=== PATIENT | male | born 1955 | race Caucasian/White ===

== ENCOUNTER → 2024-03-01 | Day surgery (SDC) | payer MEDICARE, BC ==
[~2024-03-01] VITALS: Ht 167.6 cm; Wt 75.7 kg
[2024-03-01] VITALS (7 sets, daily range): BP systolic 127–149; BP diastolic 74–90; PULSE 58–65; RESP 10–21; TEMP 98.3; O2SAT 96–97
[~2024-03-01] MED LIST: ASPI-611 PO; HYDROmorphone 1 mg/ml syringe ONE; LIDOcaine 1% 30ml preserv. free vial ONE; LOSA25TA41 PO; RIZA10TA28 PO; ROSU10TA28 PO; TADA5TAB13 PO; fentaNYL/PF 50MCG/1 ML 2ML syringe ONE; heparin 1,000unit/ml 10ml vial 10 ML ONE; iohexol 350 MG/ML 50ML vial IV ONE; iohexol 350MG/ML 100ml bottle IV ONE; midazolam 1 mg/ML 2ml injection ONE; ondansetron/PF 4mg/2ml inj IV PRN
[2024-03-01 07:58] LABS: BASOPHILS # (AUTO) 0.1 X10'3 (0-0.2); EOSINOPHILS # (AUTO) 0.3 X10'3 (0-0.9); HEMOGLOBIN 14.4 g/dl (14.0-17.9)
[2024-03-01 08:00] LABS: BASOPHILS % (AUTO) 1.4 % (0-1); EOSINOPHILS % (AUTO) 4.1 % (0-6); HEMATOCRIT 42.4 % (42.0-52.0); LYMPHOCYTES # (AUTO) 2.2 X10'3 (1.1-4.8); LYMPHOCYTES % (AUTO) 32.1 % (21-51); MEAN CORPUSCULAR HEMOGLOBIN 33.8 PG (27.0-31.0); MEAN CORPUSCULAR HGB CONC 34.1 g/dL (33.0-36.5); MEAN CORPUSCULAR VOLUME 99.3 FL (78-98); MEAN PLATELET VOLUME 7.9 FL (7.4-10.4); MONOCYTES % (AUTO) 14.6 % (2-12); NEUTROPHILS # (AUTO) 3.3 X10'3 (1.8-7.7); NEUTROPHILS % (AUTO) 47.8 % (42-75); PLATELET COUNT 269 X10'3 (140-440); RED BLOOD COUNT 4.27 X10'6 (4.70-6.10); RED CELL DISTRIBUTION WIDTH 13.8 % (11.5-14.5)
[2024-03-01] MEDS: sodium bicarbonate 1meq/ml syr 150 ML in dextrose 5%-water 1,000 ML IV SCH (08:19)
[2024-03-01] MEDS: diphenhydrAMINE 25mg capsule PO PRN (08:19)
[2024-03-01 08:22] LABS: PROTHROMBIN TIME 10.4 SECONDS (9.0-12.0)
[2024-03-01] MEDS: normal saline 1,000 ML IV SCH (08:24)
[2024-03-01 08:26] LABS: ALBUMIN 3.9 G/DL (3.4-5.0); ANION GAP 11 (8-16); BLOOD UREA NITROGEN 16 MG/DL (7-18); BUN/CREATININE RATIO 15.5 (10.0-20.0); CALCIUM 9.2 MG/DL (8.5-10.1); CHLORIDE 103 MMOL/L (99-107); CREATININE 1.03 MG/DL (0.60-1.10); GLUCOSE 100 MG/DL (70-104); MAGNESIUM 1.9 MG/DL (1.5-2.4); POTASSIUM 4.1 MMOL/L (3.5-5.1); SODIUM 140 MMOL/L (135-145); TOTAL CARBON DIOXIDE 25.9 MMOL/L (24-32); eCRCL 62 ML/MIN; eGFR 72 ML/MIN
== END | disposition home or self-care (01) ==
LOC: SSTAY O 06:59
PROVIDERS: ATTEND Internal Medicine Cardiovascular Disease
DX: I35.0 Nonrheumatic aortic (valve) stenosis (principal); I45.10 Unspecified right bundle-branch block; I25.10 Atherosclerotic heart disease of native coronary artery without angina pectoris; I10 Essential (primary) hypertension; E78.5 Hyperlipidemia, unspecified; Z79.82 Long term (current) use of aspirin; Z79.899 Other long term (current) drug therapy; Z90.81 Acquired absence of spleen; Z95.2 Presence of prosthetic heart valve; Z98.890 Other specified postprocedural states
CPT/HCPCS: 36415; 80048; 83735; 85025; 85610; 93005; 93456; 99152; 99153; J1644; J2250; J3010; J3490; J7030; J7070; Q0163; Q9967; A6258; C1725; C1751; C1760; C1769; C1894; J1170

== ENCOUNTER 2024-03-08 07:20 | Day surgery (SDC) | payer MEDICARE, BC ==
[~2024-03-08] VITALS: Ht 167.6 cm; Wt 74.5 kg
[2024-03-08] VITALS (14 sets, daily range): BP systolic 125–166; BP diastolic 54–108; PULSE 61–88; RESP 12–18; TEMP 98; O2SAT 93–99
[~2024-03-08 07:20] MED LIST changes: -HYDROmorphone 1 mg/ml syringe ONE; -LIDOcaine 1% 30ml preserv. free vial ONE; -fentaNYL/PF 50MCG/1 ML 2ML syringe ONE; -heparin 1,000unit/ml 10ml vial 10 ML ONE; -iohexol 350 MG/ML 50ML vial IV ONE; -iohexol 350MG/ML 100ml bottle IV ONE; -midazolam 1 mg/ML 2ml injection ONE; -ondansetron/PF 4mg/2ml inj IV PRN
[2024-03-08 08:28] LABS: BASOPHILS # (AUTO) 0.1 X10'3 (0-0.2); EOSINOPHILS # (AUTO) 0.2 X10'3 (0-0.9); MONOCYTES # (AUTO) 0.7 X10'3 (0-0.9); WHITE BLOOD COUNT 5.6 X10'3 (4.5-11.0)
[2024-03-08 08:30] LABS: BASOPHILS % (AUTO) 1.3 % (0-1); HEMATOCRIT 40.7 % (42.0-52.0); HEMOGLOBIN 13.9 g/dl (14.0-17.9); LYMPHOCYTES # (AUTO) 1.9 X10'3 (1.1-4.8); LYMPHOCYTES % (AUTO) 33.6 % (21-51); MEAN CORPUSCULAR HEMOGLOBIN 33.9 PG (27.0-31.0); MEAN CORPUSCULAR HGB CONC 34.1 g/dL (33.0-36.5); MEAN CORPUSCULAR VOLUME 99.6 FL (78-98); MEAN PLATELET VOLUME 7.6 FL (7.4-10.4); MONOCYTES % (AUTO) 12.2 % (2-12); NEUTROPHILS # (AUTO) 2.8 X10'3 (1.8-7.7); NEUTROPHILS % (AUTO) 49.9 % (42-75); PLATELET COUNT 271 X10'3 (140-440); RED BLOOD COUNT 4.08 X10'6 (4.70-6.10); RED CELL DISTRIBUTION WIDTH 13.7 % (11.5-14.5)
[2024-03-08 08:49] LABS: PROTHROMBIN TIME 10.7 SECONDS (9.0-12.0)
[2024-03-08] MEDS: glycopyrrolate 0.2mg/ml inj IV ONE (09:19)
[2024-03-08] MEDS: fentaNYL/PF 50MCG/1 ML 2ML syringe IV ONE (12:21)
[2024-03-08] MEDS: MIDAZolam 1mg/ml 10ml vial IV ONE (12:21)
== END 2024-03-08 13:10 | disposition home or self-care (01) ==
LOC: SSTAY O 07:20
PROVIDERS: ATTEND Internal Medicine Cardiovascular Disease
DX: I35.0 Nonrheumatic aortic (valve) stenosis (principal); I10 Essential (primary) hypertension; E78.5 Hyperlipidemia, unspecified; G40.A09 Absence epileptic syndrome, not intractable, without status epilepticus; Z95.2 Presence of prosthetic heart valve; Z79.82 Long term (current) use of aspirin; Z79.899 Other long term (current) drug therapy; Z90.81 Acquired absence of spleen
CPT/HCPCS: 85025; 85610; 93312; J2250; J3010; J3490; J7030

== ENCOUNTER 2025-04-14 08:37 | Outpatient (CLI) | payer MEDICARE, BC ==
[~2025-04-14 08:37] MED LIST changes: -ROSU10TA28 PO; +ROSU10TA72 PO; -TADA5TAB13 PO; +TADA5TAB14 PO
[2025-04-14 09:31] LABS: BASOPHILS # (AUTO) 0.1 X10'3 (0-0.2); BASOPHILS % (AUTO) 0.9 % (0-1); EOSINOPHILS # (AUTO) 0.2 X10'3 (0-0.9); EOSINOPHILS % (AUTO) 3.3 % (0-6); HEMATOCRIT 41.2 % (42.0-52.0); HEMOGLOBIN 13.8 g/dl (14.0-17.9); LYMPHOCYTES # (AUTO) 2.2 X10'3 (1.1-4.8); LYMPHOCYTES % (AUTO) 32.7 % (21-51); MEAN CORPUSCULAR HEMOGLOBIN 33.3 PG (27.0-31.0); MEAN CORPUSCULAR HGB CONC 33.5 g/dL (33.0-36.5); MEAN CORPUSCULAR VOLUME 99.7 FL (78-98); MEAN PLATELET VOLUME 8.2 FL (7.4-10.4); MONOCYTES # (AUTO) 0.9 X10'3 (0-0.9); MONOCYTES % (AUTO) 13.3 % (2-12); NEUTROPHILS # (AUTO) 3.3 X10'3 (1.8-7.7); NEUTROPHILS % (AUTO) 49.8 % (42-75); PLATELET COUNT 254 X10'3 (140-440); RED BLOOD COUNT 4.13 X10'6 (4.70-6.10); RED CELL DISTRIBUTION WIDTH 13.5 % (11.5-14.5); WHITE BLOOD COUNT 6.7 X10'3 (4.5-11.0)
[2025-04-14 09:43] LABS: APTT 27 SECONDS (22-32); PROTHROMBIN TIME 10.3 SECONDS (9.0-12.0)
[2025-04-14 09:50] LABS: ALANINE AMINOTRANSFERASE 19 U/L (12-78); ALBUMIN 3.7 G/DL (3.4-5.0); ALKALINE PHOSPHATASE 58 IU/L (46-116); ANION GAP 9 (8-16); ASPARTATE AMINO TRANSFERASE 30 U/L (10-37); BILIRUBIN,TOTAL 0.5 MG/DL (0.1-1.0); BLOOD UREA NITROGEN 14 MG/DL (7-18); BUN/CREATININE RATIO 14.3 (10.0-20.0); CALCIUM 8.7 MG/DL (8.5-10.1); CHLORIDE 105 MMOL/L (99-107); CREATININE 0.98 MG/DL (0.60-1.10); GLUCOSE 106 MG/DL (70-104); POTASSIUM 4.1 MMOL/L (3.5-5.1); PRO BRAIN NATRIURETIC PEPTIDE 101 PG/ML (0-125); SODIUM 140 MMOL/L (135-145); TOTAL CARBON DIOXIDE 26.1 MMOL/L (24-32); TOTAL PROTEIN 7.4 G/DL (6.4-8.2); eGFR 76 ML/MIN
[2025-04-14] MEDS ORDERED: IODIXANOL 320 MG/ML INFUS..BTL 100ML IV ONE (10:53)
--- NOTE | 2025-04-14 11:21 | RADIOLOGY REPORT ---
DI CHEST,TWO VIEWS CLINICAL HISTORY: SOB TAVR COMPARISON: None TECHNIQUE: Frontal and lateral view of the chest was obtained FINDINGS: Lines and Tubes: None Lungs: No focal consolidation. Pleura: No effusion. No pneumothorax. Cardiomediastinal contours: Unremarkable Bones: No acute osseous abnormality. IMPRESSION: No acute cardiopulmonary disease. MEDIAN STERNOTOMY.
--- NOTE | 2025-04-14 11:22 | VASCULAR REPORT ---
Carotid Duplex Date: 04/14/2025 09:05 AM Clinical History: Preop TAVR Comparison: None Technique: Duplex Doppler evaluation of the extracranial carotid and vertebral arteries including col or Doppler and spectral/pulsed waveform analysis was performed. Findings: RIGHT SIDE: The peak systolic velocities are 89 cm/s in the distal CCA and 105 cm/s in the proximal ICA.The ICA/C CA ratio is 1.4. The external carotid artery is patent with peak systolic velocity of 92 cm/s proximally. There is appropriate antegrade flow in the right vertebral artery. LEFT SIDE: The peak systolic velocities are 97 cm/s in the distal CCA and 91cm/s in the proximal ICA. The ICA/ CCA ratio is 1.2. The external carotid artery is patent with peak systolic velocity of 100 cm/s proximally. There is appropriate antegrade flow in the left vertebral artery. Right subclavian artery: 152 cm/sec. Left subclavian artery: 144 cm/sec. IMPRESSION: No hemodynamically significant stenosis noted in the right carotid system. No hemodynamically significant stenosis noted in the left carotid system. Reference: Radiology 2003; 229:[id number]
--- NOTE | 2025-04-15 15:55 | RADIOLOGY REPORT ---
CT CTA TAVR INDICATION: AV STENOSIS,SOB,CAROTID STENOSIS TECHNIQUE: Gated CT angiography of the heart was performed along with CT angiography of the lower nec k, chest, abdomen, and pelvis. MIP, MPR, and 3-D images were obtained. Measurements were performed on the centrose workstation. All CT scans at this facility use dose modulation, iterative reconstruction , and/or weight based dosing when appropriate to reduce radiation dose to as low as reasonably achiev able. # of previous computed tomography exams in the last 12 months is 0. # of previous nuclear medicine my ocardial perfusion studies in the last 12 months is 0. COMPARISON: None FINDINGS: ANNULAR PLANE DISTANCE: 29.2 x 23.7 mm AREA: 5.28 cm2 AVERAGE DIAMETER: 26.45 mm PERIMETER: 82.8 mm LEFT CORONARY ARTERY HEIGHT ABOVE ANNULAR PLANE: 8.25 mm RIGHT CORONARY ARTERY HEIGHT ABOVE ANNULAR PLANE: 12 mm LEFT CORONARY SINUS DIAMETER: 33.8 mm RIGHT CORONARY SINUS DIAMETER: 33.8 mm NONCORONARY CORONARY SINUS DIAMETER: 35.6 mm SINOTUBULAR JUNCTION DIAMETER: 29.5 mm RIGHT COMMON ILIAC ARTERY MINIMAL DIMENSIONS: 11.2 mm RIGHT EXTERNAL ILIAC ARTERY MINIMAL DIMENSIONS: 9.17 mm RIGHT COMMON FEMORAL ARTERY MINIMAL DIMENSIONS: 8.54 mm LEFT COMMON ILIAC ARTERY MINIMAL DIMENSIONS: 10 mm LEFT EXTERNAL ILIAC ARTERY MINIMAL DIMENSIONS: 8.92 mm LEFT COMMON FEMORAL ARTERY MINIMAL DIMENSIONS: 8.68 mm [LOWER NECK]: Unremarkable [LYMPH NODES/MEDIASTINUM]: No abnormal lymph nodes by CT size criteria [CARDIOVASCULAR]: Mild cardiomegaly. No pericardial effusion. Prominence of the main pulmonary h[place] ry, which may indicate pulmonary hypertension. Prior aortic valvular replacement. No significant jaquan nary artery calcifications. [LUNG PARENCHYMA/PLEURAL SPACE]: No consolidation, suspicious focal airspace opacity, or suspicious n odules. No pleural effusion or pneumothorax. [CHEST WALL]: Unremarkable. [LIVER]: Normal hepatic size without suspicious focal lesion. [SPLEEN]: Splenectomy. Small splenules in the left upper quadrant. [PANCREAS]: Unremarkable. [GALLBLADDER AND BILIARY TREE]: No cholelithiasis. No biliary dilatation. [ADRENAL GLANDS]: Unremarkable [KIDNEYS]: No hydronephrosis. No nephroureterolithiasis. No suspicious focal lesion. [BLADDER]: Circumferential bladder wall thickening, which may be seen in the setting of acute versus chronic cystitis and correlate with urinalysis. [PELVIC ORGANS]: Mild prostatomegaly [BOWEL/MESENTERY]: Stomach is normal. No CT evidence of bowel obstruction. Sigmoid diverticulosis. No definitive CT evidence of acute diverticulitis. Mild stool burden. [ASCITES]: Absent [LYMPHADENOPATHY]: No pathologically enlarged lymph nodes by CT size criteria [VASCULATURE]: Severe celiac artery narrowing which may be related to median arcuate ligament syndrom e/celiac artery compression from the juan of the diaphragm (series 602, image 71). [ABDOMINAL WALL]: Unremarkable. [MUSCULOSKELETAL]: No acute fracture or aggressive focal osseous lesion. Multifocal degenerative paige ge of the visualized spine. Likely chronic superior endplate compression deformity of L3 with estima gerard 10-20 percent superior endplate height loss. IMPRESSION: Calculations for TAVR evaluation as above. Circumferential bladder wall thickening, which may be seen in the setting of acute versus chronic cys titis and correlate with urinalysis. Severe celiac artery narrowing which may be related to median arcuate ligament syndrome/celiac artery compression from the juan of the diaphragm.
--- NOTE | 2025-04-15 17:55 | CARDIOLOGY REPORT ---
APPROVED REPORT EXAM: Limited 2D, Doppler, and color-flow Echocardiogram. Patient Location: OUT-PATIENT Blood Pressure: 120/60 mmHg Heart Rate: 68 bpm Rhythm: SINUS Indications REASSESS 23MM TRIFECTA AVR FROM 2013 FOR STENOSIS AND INSUFFICIENCY Job Boss: Jose GROSS DO Previous echo: 03/18/25 [facility] EF: 60-65%; mLAE; sevAS KRAIG: 1.20; PKV: 4.1; GRAD: 67/40 03/08/25 [facility] SS EF: 70%; nlLV; mCLVH; nlRV; nlLAA; seated AVR, thick leaflets-but opens well. NoAI/P VL LEFT VENTRICLE Normal LV size with mild concentric hypertrophy. Overall systolic function is normal. LVEF is 70%. RIGHT VENTRICLE RV is normal size and function. ATRIA The left atrium size is normal. Right atrium is moderately dilated. AORTIC VALVE 23 mm Trifecta (Liu) bioprosthetic AVR appears moderately thickened, but maintains acceptable open ing. ACS measures 1.8cm. There is significant abnormal function detected via increased transvalvular and ascending aorta turbulance, as well as mild eccentric insufficiency. Peak / mean gradients of 92 / 47 mmHG. Peak velocity is measured at 4.81 m/sec. MITRAL VALVE Mild MV annular calcification and leaflet thickening without stenosis. Trace regurgitation. TRICUSPID VALVE TV appears structurally normal with trace regurgitation. PULMONIC VALVE Normal PV without stenosis, physiologic insufficiency. GREAT VESSELS Aortic root is normal in size. Normal appearing arch with increased flow velocities. Ascending aorta is normal in size. PERICARDIUM Normal pericardium. No effusion. Conclusion Normal LV size with mild concentric hypertrophy. Overall systolic function is normal. LVEF is 70%. RV is normal size and function. The left atrium size is normal. Right atrium is moderately dilated. 23 mm Trifecta (Liu) bioprosthetic AVR appears moderately thickened, but maintains acceptable open ing. ACS measures 1.8cm. There is significant abnormal function detected via increased transvalvula r and ascending aorta turbulance, as well as mild eccentric insufficiency. Peak / mean gradients of 92 / 47 mmHG. Peak velocity is measured at 4.81 m/sec. Mild MV annular calcification and leaflet thickening without stenosis. Trace regurgitation. TV appears structurally normal with trace regurgitation. Aortic root is normal in size. Normal appearing arch with increased flow velocities. Ascending aorta is normal in size. Normal pericardium. No effusion.
== END 2025-04-14 23:59 | disposition home or self-care (01) ==
LOC: RAD 08:37
PROVIDERS: ATTEND Internal Medicine Cardiovascular Disease
DX: I08.8 Other rheumatic multiple valve diseases (principal); I35.0 Nonrheumatic aortic (valve) stenosis; R06.02 Shortness of breath; Z13.6 Encounter for screening for cardiovascular disorders; I65.29 Occlusion and stenosis of unspecified carotid artery
CPT/HCPCS: 36415; 71046; 71275; 74174; 75572; 80053; 83880; 85025; 85610; 85730; 93308; 93880; Q9967

== ENCOUNTER 2025-06-06 12:00 | Inpatient (IN) | payer MEDICARE, BC ==
[~2025-06-06] VITALS: Ht 167.6 cm; Wt 74.6 kg
--- NOTE | 2025-06-06 12:15 | ELECTROCARDIOGRAPH REPORT ---
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 Zachary Long Measurements Intervals [place] Rate: 67 P: 8 IL: 188 QRS: 36 QRSD: 93 T: 29 QT: 405 QTc: 428 Interpretive Statements Sinus rhythm Probable left atrial enlargement Anterior infarct, old Electronically Signed On 06-06-2025 18:16:[address] Zachary Long Please click the below link to view image of tracing.
--- NOTE | 2025-06-06 12:32 | Physician Documentation ---
History of Present Illness ~ Chief Complaint: See Chief Complaint Stated Complaint: CONGESTION [id number] Time Seen by MD: 12:28 OK to notify your PCP?: Yes Source: patient Mode of Arrival: EMS Exam Limitations: no limitations HPI 70 year old male with chief complaint SOB X 2weeks getting progressively worse. States around midnight to 2:00 a.m. he asked her to get out of bed and sleep in a recliner due to his shortness of breath. He went to see his primary care provider who prescribed him an inhaler which has not been helping symptoms have been getting progressively worse over the past several days. 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 Miles gait he is also followed by Dr. fagan and has a appointment to have his aortic valve placed 07/24. No LE edema. No heartburn, cough, SOB, abdominal pain, dizziness. Medication Reconciliation Allergies: Coded Allergies: No Known Allergies (Unverified , 03/01/24) Scheduled Aspirin (Aspir 81), 1 TAB PO DAILY, (Reported) Losartan Potassium (Losartan Potassium), 1 TAB PO DAILY, (Reported) Rosuvastatin Calcium (Rosuvastatin Calcium), 1 TAB PO DAILY, (Reported) Tadalafil (Tadalafil), 1 TAB PO DAILY, (Reported) Scheduled PRN Rizatriptan Benzoate (Rizatriptan), 1 TAB PO DAILY PRN for migraine headaches, (Reported) Past Medical History Past Medical History: Denies: *CARDIOVASCULAR* Review of Systems All Other Systems at this time: Reviewed and Negative Physical Exam Vital Signs: Temperature: 98.6, Source: Oral, Heart Rate: 72, Respiratory Rate: 16, BP: 134/60, Pulse Oximetry: 98, Weight: 74.600 Oxygen Flow Rate: 0 Physical Exam GENERAL: Alert, no acute distress. HEENT: NCAT, EOMI, PERRL, normal oropharynx, moist oral mucosa. NECK: Supple, trachea midline. CARDIAC: Regular rate and rhythm, SYSTOLIC MURMUR GRADE 4-5/6, no Rubs, or gallops. Equal distal pulses. No lower extremity edema, cap refill less than 2 seconds. RESPIRATORY: Decreased BS, no respiratory distress. GASTROINTESTINAL: Non distended, soft, nontender, No guarding or rebound. MUSCULOSKELETAL: Normal range of motion, nontender, no swelling. NEUROLOGICAL: Awake, alert, and oriented x 3. SKIN: Warm/dry, no pallor, no rash. PSYCH: Alert and appropriate. Affect congruent with mood. Speech is clear. Good eye contact. Progress Results/Orders Results/Orders Orders - GRETTA VOSS Hs Troponin I W Calculations (06/06/25 16:50) Hs Troponin I W Calculations (06/06/25 17:50) Page Hospitalist (06/06/25 16:06) Cta Chest Pe (06/06/25 16:07) Completed Orders - GRETTA VOSS Cbc/Diff (06/06/25 14:50) Pt Inr (06/06/25 14:50) PTT (06/06/25 14:50) PBNP (06/06/25 14:50) Hs Troponin I W Calculations (06/06/25 14:50) Bmp Er (06/06/25 14:51) Vital Signs 06/06/25 06/06/25 06/06/25 12:07 15:13 15:24 Temp 98.6 Pulse 72 68 Resp 16 18 19 B/P (MAP) 134/60 112/71 (85) Pulse Ox 98 96 O2 Flow Rate 0 0 Laboratory Tests Test 06/06/25 15:05 White Blood Count 6.9 Red Blood Count 3.93 L Hemoglobin 13.4 L Hematocrit 39.3 L Mean Corpuscular Volume 100.0 H Mean Corpuscular Hemoglobin 34.1 H Mean Corpuscular Hemoglobin Concent 34.1 Red Cell Distribution Width 13.4 Platelet Count 231 Mean Platelet Volume 9.3 Neutrophils (%) (Auto) 52.1 Lymphocytes (%) (Auto) 29.5 Monocytes (%) (Auto) 12.5 H Eosinophils (%) (Auto) 4.7 Basophils (%) (Auto) 1.2 H Neutrophils # (Auto) 3.6 Lymphocytes # (Auto) 2.0 Monocytes # (Auto) 0.9 Eosinophils # (Auto) 0.3 Basophils # (Auto) 0.1 CBC Comment Prothrombin Time 10.8 INR International Normalized Ratio 1.1 Activated Partial Thromboplast Time 29 Coagulation Comments Sodium Level 138 Potassium Level 4.5 Chloride Level 105 Carbon Dioxide Level 26.2 Anion Gap 7 L Blood Urea Nitrogen 11 Creatinine 0.97 Estimated GFR/1.73 m2 77 BUN/Creatinine Ratio 11.3 Glucose Level 103 Calcium Level 9.0 Troponin I High Sensitivity 25 Pro-B-Type Natriuretic Peptide 1892 H Albumin 3.7 Chemistry Comments Medical Decision Making Differential Dx:Considerations: Include: angina, aortic dissection, chest wall pain, cholelithiasis, CHF, costochondritis, esophageal reflux/spasm, gastritis, herpes zoster, myocardial infarction, pericarditis, pleuritis, pancreatitis, pneumonia, pneumothorax, pulmonary embolus, other Departure Time of Disposition: 16:22 Admitted to Inpatient Unit: to hospitalist Impression: Primary Impression: CHF (congestive heart failure) Qualified Codes: I50.9 - Heart failure, unspecified Additional Impression: Aortic stenosis Qualified Codes: I35.0 - Nonrheumatic aortic (valve) stenosis Condition: Fair Referrals: NO PRIMARY CARE PROVIDER (PCP) Education Educated: Patient Educated regarding: diagnosis, treatment, need for follow up Signature Scribe Signature: x Attestation: GRETTA Parra Jun 06, 2025 12:31
--- NOTE | 2025-06-06 13:01 | RADIOLOGY REPORT ---
CHEST RADIOGRAPH Indication: CP Technique: Single frontal view of the chest was obtained COMPARISON: None FINDINGS: Lines and Tubes: Median sternotomy Lungs: Clear Pleura: Small bilateral pleural effusions, [id number]-left. No pneumothorax. Cardiomediastinal contours: Unremarkable Bones: Unremarkable IMPRESSION: Small bilateral pleural effusions, [id number]-left.
[2025-06-06 15:22] LABS: MEAN PLATELET VOLUME 9.3 FL (7.4-10.4); RED CELL DISTRIBUTION WIDTH 13.4 % (11.5-14.5)
[2025-06-06 15:31] LABS: APTT 29 SECONDS (22-32); INR 1.1 INR
[2025-06-06 15:40] LABS: CREATININE 0.97 MG/DL (0.60-1.10); PRO BRAIN NATRIURETIC PEPTIDE 1892 PG/ML (0-125); TOTAL CARBON DIOXIDE 26.2 MMOL/L (24-32); eCRCL 64 ML/MIN; eGFR 77 ML/MIN
[2025-06-06] MEDS ORDERED: magnesium sulf-water 4G/100mL 100 ML IV PRN (16:45)
[2025-06-06] MEDS ORDERED: magnesium hydroxide 30ml (MOM) UD suspension PO PRN (16:45)
[2025-06-06] MEDS ORDERED: magnesium sulf-water 2g/50mL 50 ML IV PRN (16:45)
[2025-06-06] MEDS ORDERED: potassium Cl 40MEQ/1/2NS 520ml 520 ML IV PRN (16:45)
[2025-06-06] MEDS ORDERED: potassium Cl 20 mEq SR tablet PO PRN ×2 (16:45)
[2025-06-06] MEDS ORDERED: magnesium Cl slow-release 64mg tablet PO PRN (16:45)
[2025-06-06] MEDS ORDERED: ondansetron/PF 4mg/2ml inj IV PRN (16:45)
[2025-06-06 17:00] LABS: LEUKOCYTE ESTERASE ,URINE NEGATIVE (Neg); NITRITES, URINE NEGATIVE (Neg); OCCULT BLOOD,URINE NEGATIVE (Neg)
[2025-06-06 17:03] LABS: UA COLLECTION TYPE CLN CATCH MIDSTREAM
--- NOTE | 2025-06-06 17:22 | HISTORY AND PHYSICAL-Residence ---
History & Physical Providers to CC Resident Creating Document: RYANSABAS RES CC: LIZ RIVAS MD ~ History of Present Illness Primary Medical Doctor: Dr. Dulce parada; pallet rectifier zack Reason for Admit\Complaint: EXERTIONAL DYSPNEA, PND FOR TWO WEEKS History of Present Illness 70-year-old male with PMH of bicuspid aortic valve s/p sAVR in 2013, f/b development of aortic valve stenosis, HTN, HLD presented to the ER with chief complaints of shortness of breath for two weeks. Patient stated he has recently seen Dr. Paige, and is scheduled to undergo repeat surgical aortic valve replacement on 07/24. During that time he had no symptoms. However for the past two weeks he noticed that when he goes to bed (he usually sleep on a flat bed) and at around 12:00 a.m., he is feeling short of breath that wakes him up from the sleep. Then he wakes, and sleeps in a recliner, and that is helping with the shortness of breath. However he also noticed this shortness of breath usually lasted for few hours till 11:00 a.m. in the morning, during that time he is only able to walk for short distance, and not able to do any exertional activity. But as the day progresses his shortness of breath is improving. He denies swelling of lower extremities. During the episodes of shortness of breaths he is having chest tightness, but denies any chest pressure. Also had intermittent lightheadedness during those episodes, and denies palpitations. Also had nocturnal cough Has a shortness of breath was most severe today, this prompted him to come to the hospital Store Sales Manager is Dr. Reyes, and PCP is Dr. Dulce Parada Allergies: Coded Allergies: No Known Allergies (Unverified , 03/01/24) Home Medications Home Medications Active Reported Aspir 81 (Aspirin) 81 Mg Tablet.dr 1 Tab PO DAILY 30 Days Rosuvastatin Calcium 10 Mg Tablet 1 Tab PO DAILY Losartan Potassium 25 Mg Tablet 1 Tab PO DAILY Rizatriptan (Rizatriptan Benzoate) 10 Mg Tablet 1 Tab PO DAILY PRN Tadalafil 5 Mg Tablet 1 Tab PO DAILY Past Medical History Past Medical History Bicuspid aortic valve and a dilated root, s/p surgical aortic valve [place] [address] Mckenzie, 23 mm trifecta valve Hypertension Hyperlipidemia BPH Asthma Remote history of seizures Past Surgical History Surgical History Comment Splenectomy 1973, left knee replacement, surgical aortic valve replacement in 2013 Family History Family History: Family history was reviewed; no changes noted. 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 no change in appetite/weight HEENT: No blurring of the vision, No sore throat, epistaxis, tinnitus Cardiovascular: No chest pain/discomfort, palpitations, syncope. No pedal edema Respiratory: Positive for exertional dyspnea, paroxysmal nocturnal dyspnea, nocturnal cough ,no hemoptysis Gastrointestinal: No abdominal pain, nausea, vomiting. No diarrhea, constipation, melena. Genitourinary: No frquency, urgency, incontinence, nocturia. No dysuria, hematuria Musculoskeletal: No arthralgia, myalgia Endocrine: No fatigue, polydipsia, polyuria. No heat or cold intolerance Neurologic: No headache, vertigo. No weakness, numbness or tingling of extremities Psychiatric: No hallucinations/delusions, no anhedonia, no suicidal ideation\ Hematologic: No bleeding or bruises Reviewed in full. All negative except for pertinent positives in HPI Exam Vitals: Vital Signs Date Time Temp Pulse Resp B/P (MAP) Pulse Ox O2 Delivery O2 Flow Rate FiO2 06/06/25 16:42 71 16 143/58 (86) 96 0 06/06/25 12:07 98.6 General: General- pleasant Elderly male, AAO x4, not in apparent distress Head: Normocephalic with an atraumatic Eyes: Pupils- 3mm, reacting to light, conjunctiva- anicteric Nose and throat: No polyps, septum- normal, no mucosal ulcers Neck: Supple, no lymphadenopathy, no carotid bruit Respiratory: No use of accessory muscles of respiration, bilateral normal breath sounds heard, bilateral fine basal crackles present Cardiac: Midline sternotomy scar present S1-S2 heard, rythm regular, grade 4/5, ejection systolic murmur in the aortic area, radiating to both carotids, palpable thrill present Abdomen: non distended, no tenderness, no organomegaly, bowel sounds- heard Extremities: no clubbing, no pedal edema, no deformities, peripheral pulses- 2+ Skin: warm and dry, no rash, no purpura Neuro: No focal deficit, gross cranial nerve exam- normal Diagnostic Data Last Recorded Lab Results: 06/06/25 1505 06/06/25 1505 Diagnostic Data: Laboratory Tests Test 06/06/25 15:05 Prothrombin Time 10.8 SECONDS (9.0-12.0) INR International Normalized Ratio 1.1 INR Activated Partial Thromboplast Time 29 SECONDS (22-32) Coagulation Comments Advance Care Planning Advanced Care plannin - 30 Minutes (Code status is discussed with him and he opted for full code) Additional Plan 70-year-old male with PMH of bicuspid aortic valve s/p sAVR in 2013, f/b development of aortic valve stenosis, HTN, HLD presented to the ER with chief complaints of exertional dyspnea, PND for two weeks New onset Acute heart failure with preserved ejection fraction NYHA-II, ACC/AHA-3 -presented with typical symptoms of left heart failure including exertional dyspnea, PND, nocturnal cough -proBNP 1892, significantly elevated compared to the proBNP of 101 a month ago -EKG no acute ST-T changes, notched P wave seen -troponins x1 negative -chest x-ray- bilateral mild pleural effusions with pulmonary congestion Plan -gentle diuresis with IV Lasix 20 mg one dose today followed by 20 mg one dose tomorrow morning -follow up on repeat echo Bicuspid aortic valve s/p sAVR in 2013 Severe aortic valve stenosis -echo done on 05/07- moderately thickened bioprosthetic AVR, ACS 1.8 cm, increased transvalvular and ascending aorta turbulent, peak/mean gradient- 92/47 mm of Hg, peak measured at 4.81 m/sec -coronary angiogram in 2023 nonobstructive CAD -patient has upcoming surgery scheduled with Dr. Paige on 07/24 -however with acute exacerbation of symptoms, we will consult Dr. Paige regarding moving the surgery to a sooner date Hypertension -continue losartan 25 mg once daily Hyperlipidemia -follow up on lipid panel -continue Crestor 10 mg once daily Asthma Not in exacerbation -albuterol nebulization q.4h/p.r.n. Macrocytosis -likely secondary to alcohol use Excessive alcohol intake -patient is taking 5-6 beers a day -started on alcohol withdrawal protocol -counseling given to patient regarding the harmful effects of alcohol Code Status: Full code Line/tube: PIV DVT prophylaxis: Lovenox Nutrition: Heart healthy PT: No Prognosis: Guarded Disposition: Continue care in PCU Sabas Olivera MD PGY-3 resident Date of Service: Jun 06, 2025 Billing Provider: LIZ RIVAS MD, HARIVARSHA, RES Jun 06, 2025 17:22
[2025-06-06] MEDS ORDERED: haloperidol lactate 5mg/ml inj IM PRN (17:45)
[2025-06-06] MEDS ORDERED: albuterol 2.5 MG/3 ML nebule NEB PRN (17:45)
[2025-06-06 18:00] VITALS: BP 146/57; PULSE 66; RESP 15; TEMP 97.6; O2SAT 93
[2025-06-06] MEDS: furosemide 10 MG/1 ML 10ml inj IV ONE (19:20)
[2025-06-06 20:00] VITALS: BP 135/87; PULSE 71; RESP 14; RESP 16; TEMP 98; O2SAT 92; O2SAT 96
[2025-06-06] MEDS: docusate sod 100mg capsule PO SCH (20:00)
[2025-06-06] MEDS: K and/or MAG REPLACEMENT MC SCH (20:00)
[2025-06-06 20:09] VITALS: PULSE 67; RESP 18; O2SAT 96
[2025-06-06] MEDS: thiamine 100mg/ml 2ml inj. IV SCH (21:00)
[2025-06-06] MEDS: neomy/polymyx B/dexamethasone ophth ointment 3.5gm EACHEYE SCH (23:25)
[2025-06-07] VITALS (8 sets, daily range): BP systolic 120–143; BP diastolic 58–65; PULSE 74–94; RESP 16–23; TEMP 97.1–97.8; O2SAT 92–98
[2025-06-07 07:01] LABS: MEAN PLATELET VOLUME 9.6 FL (7.4-10.4); RED CELL DISTRIBUTION WIDTH 13.5 % (11.5-14.5)
[2025-06-07 07:05] LABS: CHOL/HDL RATIO 1.5 (0.00-4.99); CREATININE 1.03 MG/DL (0.60-1.10); LDL CHOLESTEROL 25 MG/DL (50-100); TOTAL CARBON DIOXIDE 25.0 MMOL/L (24-32); eCRCL 60 ML/MIN; eGFR 71 ML/MIN
[2025-06-07] MEDS: folic acid 1mg/0.2ml inj IV SCH (08:36)
[2025-06-07] MEDS: multivitamins, therapeutics tablet PO SCH (08:38)
[2025-06-07] MEDS: furosemide 10 MG/1 ML 10ml inj IV SCH (08:39)
[2025-06-07] MEDS: enoxaparin 40mg/0.4ml syringe SUBCUT SCH (08:40)
--- NOTE | 2025-06-07 10:09 | PROGRESS NOTE- Residence ---
Progress Note - Resident Providers to CC Resident Creating Document: MOHINI DAVIS RES CC: LIZ RIVAS MD ~ Central Line/PICC still needed: N\A Antibiotic Timeout Antibiotic Ordered?: No Subjective Patient is seen this morning. He is complaining of left eye redness and watering. Stated no PND last night. However did not see much improvement in symptoms Informed to the patient that Dr. Paige, will come and talk to him today Objective Vital Signs Date Time Temp Pulse Resp B/P (MAP) Pulse Ox O2 Delivery O2 Flow Rate FiO2 06/07/25 09:24 74 18 92 Room Air* 0 21 06/07/25 06:00 97.4 134/65 (88) Result Diagram: 06/07/2561206/07/25 06 General- pleasant Elderly male, AAO x4, not in apparent distress Head: Normocephalic with an atraumatic Eyes: Pupils- 3mm, reacting to light, conjunctiva- anicteri, left eye- redness, and watering present Nose and throat: No polyps, septum- normal, no mucosal ulcers Neck: Supple, no lymphadenopathy, no carotid bruit Respiratory: No use of accessory muscles of respiration, bilateral normal breath sounds heard, occassional crackles in the basal areas Cardiac: Midline sternotomy scar present S1-S2 heard, rythm regular, grade 4/5, ejection systolic murmur in the aortic area, radiating to both carotids, palpable thrill present Abdomen: non distended, no tenderness, no organomegaly, bowel sounds- heard Extremities: no clubbing, no pedal edema, no deformities, peripheral pulses- 2+ Skin: warm and dry, no rash, no purpura Neuro: No focal deficit, gross cranial nerve exam- normal Coagulation Studies Laboratory Tests Test 06/06/25 15:05 Prothrombin Time 10.8 SECONDS (9.0-12.0) INR International Normalized Ratio 1.1 INR Activated Partial Thromboplast Time 29 SECONDS (22-32) Coagulation Comments Assessment Assessment 70-year-old male with PMH of bicuspid aortic valve s/p sAVR in 2013, f/b development of aortic valve stenosis, HTN, HLD presented to the ER with chief complaints of exertional dyspnea, PND for two weeks Plan Plan New onset Acute heart failure with preserved ejection fraction NYHA-II, ACC/AHA-3 -presented with typical symptoms of left heart failure including exertional dyspnea, PND, nocturnal cough -proBNP 1892, significantly elevated compared to the proBNP of 101 a month ago -EKG no acute ST-T changes, notched P wave seen -troponins x3 negative -chest x-ray- bilateral mild pleural effusions with pulmonary congestion Plan -continue iv lasix 20 mg once daily -monitor strict i/o chart -follow up on repeat echo Bicuspid aortic valve s/p sAVR in 2013 Severe aortic valve stenosis -echo done on 05/07- moderately thickened bioprosthetic AVR, ACS 1.8 cm, increased transvalvular and ascending aorta turbulent, peak/mean gradient- 92/47 mm of Hg, peak measured at 4.81 m/sec -coronary angiogram in 2023 nonobstructive CAD -patient has upcoming surgery scheduled with Dr. Paige on 07/24 -consulted Dr. Paige today, he will come and talk to the patient today Hypertension -continue losartan 25 mg once daily Hyperlipidemia -LDL-25, HDL-87 -continue Crestor 10 mg once daily Asthma Not in exacerbation -albuterol nebulization q.4h/p.r.n. Macrocytosis -likely secondary to alcohol use Excessive alcohol intake -patient is taking 5-6 beers a day -started on alcohol withdrawal protocol -counseling given to patient regarding the harmful effects of alcohol Left eye redness -continue artificial tear eye drops Code Status: Full code Line/tube: PIV DVT prophylaxis: Lovenox Nutrition: Heart healthy PT: No Prognosis: Guarded Disposition: Continue care in PCU, CTVS consult today Mohini Davis MD IM PGY-3 resident Date of Service: Jun 07, 2025 Billing Provider: LIZ RIVAS MD,MOHINI, RES Jun 07, 2025 10:09
--- NOTE | 2025-06-07 11:19 | PROGRESS NOTE ---
Progress Note CV Providers to CC ~ Progress Note: Admission for congestive heart failure secondary to prosthetic aortic valve stenosis Central Line/PICC still needed: N\A Arcos Indications Met/Not Met: F/C Indications Not Met Antibiotics Ordered?: No Subjective Subjective Patient feels much better today. He was admitted due to two week history of increasing shortness of breath with finally orthopnea. Chest x-ray notes increasing congestion pulmonary congestion. He has responded well to Lasix and is relatively asymptomatic now. Objective Vitals Vital Signs Date Time Temp Pulse Resp B/P (MAP) Pulse Ox O2 Delivery O2 Flow Rate FiO2 06/07/25 09:24 74 18 92 Room Air* 0 21 06/07/25 06:00 97.4 134/65 (88) Lab Results: 06/07/25 0613 06/07/25 0613 Objective Lungs with a occasional crackles at bases. Otherwise good expansion. Cardiac exam regular rate and rhythm with a grade 3-4/6 systolic flow murmur. S2 to is single. No rubs present. Abdomen is soft and nontender normoactive bowel sounds. No masses or organomegaly noted. No peripheral edema. Coagulation Studies Laboratory Tests Test 06/06/25 15:05 Prothrombin Time 10.8 SECONDS (9.0-12.0) INR International Normalized Ratio 1.1 INR Activated Partial Thromboplast Time 29 SECONDS (22-32) Coagulation Comments Cardiac Rhythm: Sinus Rhythm Problem\Assessment\Plan Additional Plan Mr. Delano bernal is a very nice 70-year-old gentleman who is approximately 10 years status post aortic valve replacement with a trifecta pericardial aortic valve prosthesis. He presents now with prosthetic valve stenosis and was scheduled for surgery in July. He however has now been admitted for congestive heart failure. He would like to move up his surgery. After discussion with the patient we will schedule it for mid June. He has several things he needs to get done prior to surgery. We have cautioned him not to do anything strenuous and to return immediately should the increasing shortness of breath or orthopnea recur. We will call him with the timing of surgery and his preoperative visit. We will get CT of chest without contrast today for operative planning. MELISSA CHAIREZ III, MD Jun 07, 2025 11:19
[2025-06-07] MEDS ORDERED: iohexol 300mg/ml 100ml inj. ONE (12:24)
--- NOTE | 2025-06-07 15:53 | RADIOLOGY REPORT ---
Procedure: CT CT CHEST W/ IV CONTRAST Reason for study/Clinical History: Preop redo AVR Comparison Study: 04/14/2025 Exam Date: 06/07/2025 02:38 PM TECHNIQUE: Following IV administration of 100 mL of Omnipaque [address] of the chest was p erformed from the lung apices to the upper abdomen without the use of intravenous contract. Axial, co steffanie and sagittal multiplanar reformats were performed. Radiation Dose Information: CT Dose: CTDI volume is 1.3 [place] [address].6 mGy*cm The dose indicators for CT are the volume Computed Tomography (CT) Dose Index (CTDIvol) and the Dose Length Product (DLP), and are measured in units of mGy and mGy-cm, respectively. These indicators are not patient dose, but values generated from the CT scanner acquisition factors. The report includes radiation exposure data for exposures received during this examination. FINDINGS: Lower neck: Normal thyroid. Lungs: There is a moderate right pleural effusion with compressive atelectasis of the right lower lob e. Smaller left pleural effusion with compressive atelectasis of the left lower lobe. Heart/Vascular Structures: Heart size enlarged. No pericardial effusion. Small mediastinal nodes are present. Lymph Nodes: No adenopathy Musculoskeletal: No acute osseous abnormality. Soft tissues: Normal. Upper abdomen: Limited portions of the upper abdomen are unremarkable. IMPRESSION: 1. Compared to previous CT there are now bilateral pleural effusions, right greater than left, with c ompressive atelectasis of the lower lobes. No evidence of active infiltrates or pulmonary edema at th is time. And Radiation optimization: All CT scans at this facility use at least one of these dose optimization prosper hniques: automated exposure control mA and/or kV adjustment per patient size (includes targeted exam s where dose is matched to clinical indication) or iterative reconstruction.
--- NOTE | 2025-06-07 23:19 | CARDIOLOGY REPORT ---
APPROVED REPORT EXAM: Limited 2D, Doppler, and color-flow Echocardiogram. Patient Location: [address] Blood Pressure: 134/65 mmHg Heart Rate: 74 bpm Rhythm: Sinus Rhythm Indications Congestive Heart Failure Assess LV Function Congestion X 2 weeks ProBNP (189) Hx of 23 mm TRIFECTA AVR 2013 Synoptic Meteorologist: Marianna Newell MD Cardiovascular Surgeon: Cayetano Paige MD Previous echo: 04/15/2025 [facility] EF: 70%, 23mm AVR Peak/mean 92/47 mmHg, Peak pedro 4.81 m/sec 2D Dimensions RVDd 3.7 cm LA Diam3.7 cm LVDd 1.2 cm PWd 5.9 (0.7-1.1cm) IVSs 1.2 (0.8-1.2cm) RA Minor4.9 cm Aortic Root(2D) 3.6 cm IVC 23.90 mm CO 8.9 L/min M-Mode Dimensions IVSd 1.36 (0.7-1.1cm) LVDd 6.33 (4.0-5.6cm) PWd 1.25 (0.7-1.1cm) Aortic Cusp Exc 1.81 (1.5-2.0cm) IVSs 1.52 cm LVDs 3.99 (2.0-3.8cm) FS (%) 39 % PWs 1.64 cm ESV(Teich) 57.4 ml LVEF(%) 68 (>50%) Biplane 2D LA Volumes LA ESV A4C 37.87 mL/m2 Aortic Valve AoV Peak Pedro. 493.4 cm/s AoV VTI 96.2 cm AO Peak GR. 97.4 mmHg AO Mean GR. 44 mmHg AI P 1/2 Time 284 ms Tricuspid Valve TR P. Velocity 376 cm/s RAP ESTIMATE 10 mmHg TR Peak Gr. 57 mmHg RVSP 67 mmHg LEFT VENTRICLE Normal LV size and function. Mild concentric hypertrophy. Overall LVEF is 65-70%. RIGHT VENTRICLE Right ventricle is moderately dilated with reduced function. Estimated PA systolic pressure is 67 mmH g. ATRIA The left atrium size is normal. Right atrium is moderately dilated. AORTIC VALVE 23 mm TRIFECTA (Liu) Bioprosthetic AVR appears moderately thickened. AVR appears to maintain accep table opening. ACS measures 1.8 cm. Abnormal function detected via increased transvalvular and ascend ing aorta turbulance. Moderate to severe insufficiency. Peak / mean gradients of 97/44 mmHG. Peak pedro ocity is measured at 493.4 cm/sec. MITRAL VALVE Mild MV annular calcification without stenosis. Trace regurgitation. TRICUSPID VALVE TV appears structurally normal with trace regurgitation. Elevated right heart pressures as noted abov e. GREAT VESSELS The aortic root is normal in size. IVC is dilated and collapses less than 50% with inspiration. PERICARDIUM Normal pericardium. No pericardial effusion seen. Other Information Study Quality: Adequate Conclusion Normal LV size and function. Mild concentric hypertrophy. Overall LVEF is 65-70%. Right ventricle is moderately dilated with reduced function. Estimated PA systolic pressure is 67 mm Hg. The left atrium size is normal. Right atrium is moderately dilated. 23 mm TRIFECTA (Liu) Bioprosthetic AVR appears moderately thickened. AVR appears to maintain acc eptable opening. ACS measures 1.8 cm. Abnormal function detected via increased transvalvular and asc ending aorta turbulance. Moderate to severe insufficiency. Peak / mean gradients of 97/44 mmHG. P eak velocity is measured at 493.4 cm/sec. TV appears structurally normal with trace regurgitation. Normal pericardium. No pericardial effusion seen.
[2025-06-08 02:00] VITALS: BP 135/61; PULSE 79; RESP 16; TEMP 97.4; O2SAT 95
[2025-06-08 07:17] VITALS: BP 119/54; PULSE 73; RESP 16; TEMP 97.7; O2SAT 93
[2025-06-08 07:43] LABS: MEAN PLATELET VOLUME 9.9 FL (7.4-10.4); RED CELL DISTRIBUTION WIDTH 13.4 % (11.5-14.5)
[2025-06-08 08:00] VITALS: RESP 16; O2SAT 93
[2025-06-08 08:12] LABS: CREATININE 0.90 MG/DL (0.60-1.10); TOTAL CARBON DIOXIDE 27.4 MMOL/L (24-32); eCRCL 69 ML/MIN; eGFR 83 ML/MIN
[2025-06-08] MEDS: PERFLUTREN PROTEIN-A MICROSPHR (Optison) 0.22 MG/ML 3ML VIAL IV ONE (10:14)
[2025-06-08 10:23] VITALS: BP_SYST 119
[2025-06-08 12:29] VITALS: PULSE 69; RESP 16; O2SAT 97
[2025-06-08] MEDS ORDERED: THIA50TA10 PO (12:52)
[2025-06-08] MEDS ORDERED: FOLI0.4T14 PO (12:52)
[2025-06-08] MEDS ORDERED: GLYC15DR4 RIGHTEYE (12:52)
[2025-06-08] MEDS ORDERED: MULT-1085 PO (12:52)
[2025-06-08] MEDS ORDERED: ALBU18HF2 IH (12:52)
[2025-06-08] MEDS ORDERED: FURO20TA4 PO (12:52)
--- NOTE | 2025-06-08 15:34 | DISCHARGE SUMMARY-Residence ---
Discharge Summary Providers to CC Resident Creating Document: SHEBA HARDEN, RES ~ Discharge Summary Admission Diagnosis: CHEST PAIN Hospital Course DATE OF ADMISSION: 06/06/2025 DATE OF DISCHARGE: 06/08/2025 Discharge Diagnosis\Comment: New onset Acute heart failure with preserved ejection fraction NYHA-II, ACC/AHA-3 Bicuspid aortic valve s/p sAVR in 2013 Severe aortic valve stenosis Hypertension Hyperlipidemia Asthma Macrocytosis Excessive alcohol intake Left eye redness Operations\Procedures: None Consultants: CTVS Complications: None Condition on DC: Stable New Medications: Albuterol Sulfate (Ventolin Hfa) 90 Mcg Hfa.aer.ad 2 PUFFS IH 5XD, #1 INHALER Folic Acid (FOLIC ACID tablet) 0.4 Mg Tablet 1 TAB PO DAILY for 30 Days, #30 TAB 0 Refills Furosemide (Furosemide) 20 Mg Tablet 1 TAB PO DAILY for 30 Days, #30 TAB 0 Refills Glycerin/Propylene Glycol (Artificial Tears Drops) 0.3 %-1 % Drops 1 DROP RIGHTEYE Q6H for 30 Days, #5 ML 0 Refills Multivitamin (Multi Vitamin Daily) 1 Each Tablet 1 TAB PO DAILY for 30 Days, #30 TAB 0 Refills Thiamine HCl (Vitamin B-1) 50 Mg Tablet 2 TAB PO DAILY for 30 Days, #60 TAB 0 Refills Continued Medications: Aspirin (Aspir 81) 81 Mg Tablet.dr 1 TAB PO DAILY for 30 Days, #30 TAB Losartan Potassium (Losartan Potassium) 25 Mg Tablet 1 TAB PO DAILY Rizatriptan Benzoate (Rizatriptan) 10 Mg Tablet 1 TAB PO DAILY PRN for migraine headaches Rosuvastatin Calcium (Rosuvastatin Calcium) 10 Mg Tablet 1 TAB PO DAILY Tadalafil (Tadalafil) 5 Mg Tablet 1 TAB PO DAILY Discharge Summary: HPI as per admitting physician: 70-year-old male with PMH of bicuspid aortic valve s/p sAVR in 2013, f/b development of aortic valve stenosis, HTN, HLD presented to the ER with chief complaints of shortness of breath for two weeks. Patient stated he has recently seen Dr. Paige, and is scheduled to undergo repeat surgical aortic valve replacement on 07/24. During that time he had no symptoms. However for the past two weeks he noticed that when he goes to bed (he usually sleep on a flat bed) and at around 12:00 a.m., he is feeling short of breath that wakes him up from the sleep. Then he wakes, and sleeps in a recliner, and that is helping with the shortness of breath. However he also noticed this shortness of breath usually lasted for few hours till 11:00 a.m. in the morning, during that time he is only able to walk for short distance, and not able to do any exertional activity. But as the day progresses his shortness of breath is improving. He denies swelling of lower extremities. During the episodes of shortness of breaths he is having chest tightness, but denies any chest pressure. Also had intermittent lightheadedness during those episodes, and denies palpitations. Also had nocturnal cough Has a shortness of breath was most severe today, this prompted him to come to the hospital Client Relationship Manager is Dr. Reyes, and PCP is Dr. Dulce Parada [facility] course: On admission, labs revealed a markedly elevated proBNP of 1892 (previously 101). EKG showed no acute ischemic changes. Chest X-ray showed mild bilateral pleural effusions and pulmonary congestion, but subsequent clinical assessment and imaging were reassuring and chest was noted to be normal. Troponins were negative. Transthoracic echocardiogram revealed worsening severe prosthetic aortic valve stenosis with a peak/mean gradient of 92/47 mmHg and peak velocity of 4.81 m/sec. He was managed medically with IV Lasix 20 mg daily, strict I/O monitoring, and supportive care. His symptoms gradually improved. Repeat echo is planned.CTVS was consulted. Patient was previously scheduled for redo aortic v alve surgery in July, but due to clinical deterioration, surgery was rescheduled for mid-June. CT chest without contrast was ordered for preoperative planning. He was instructed to avoid strenuous activity and return if symptoms worsen. Other issues addressed: Left eye redness and tearing: Conservative treatment with artificial tears; no signs of infection. Chronic alcohol use: Patient reported drinking 56 beers daily; alcohol withdrawal protocol initiated, and counseling provided. Asthma: Stable, not in exacerbation; treated with albuterol as needed. Macrocytosis: Likely alcohol-related. Hypertension and hyperlipidemia: Continued on losartan and rosuvastatin with excellent lipid control. Mr. Wick remained hemodynamically stable. Patient did not experience further complications throughout the entire hospital stay. Patient was seen and examined on the day of discharge. All labs, diagnostic workups, discharge plan discussed with patient in details during visit before discharge. All questions and conc erns answered to the best of my professional knowledge. Physical examination today: General- pleasant Elderly male, AAO x4, not in apparent distress Head: Normocephalic with an atraumatic Eyes: Pupils- 3mm, reacting to light, conjunctiva- anicteri, left eye- redness, and watering present Nose and throat: No polyps, septum- normal, no mucosal ulcers Neck: Supple, no lymphadenopathy, no carotid bruit Respiratory: No use of accessory muscles of respiration, bilateral normal breath sounds heard, occassional crackles in the basal areas Cardiac: Midline sternotomy scar present S1-S2 heard, rythm regular, grade 4/5, ejection systolic murmur in the aortic area, radiating to both carotids, palpable thrill present Abdomen: non distended, no tenderness, no organomegaly, bowel sounds- heard Extremities: no clubbing, no pedal edema, no deformities, peripheral pulses- 2+ Skin: warm and dry, no rash, no purpura Neuro: No focal deficit, gross cranial nerve exam- normal Echocardiogram Normal LV size and function. Mild concentric hypertrophy. Overall LVEF is 65- 70%. Right ventricle is moderately dilated with reduced function. Estimated PA systolic pressure is 67 mmHg. The left atrium size is normal. Right atrium is moderately dilated. 23 mm TRIFECTA (Liu) Bioprosthetic AVR appears moderately thickened. AVR appears to maintain acceptable opening. ACS measures 1.8 cm. Abnormal function detected via increased transvalvular and ascending aorta turbulance. Moderate to severe insufficiency. Peak / mean gradients of 97/44 mmHG. Peak velocity is measured at 493.4 cm/sec. TV appears structurally normal with trace regurgitation. Normal pericardium. No pericardial effusion seen. CT chest Compared to previous CT there are now bilateral pleural effusions, right greater than left, with compressive atelectasis of the lower lobes. No evidence of active infiltrates or pulmonary edema at this time. Chest x-ray Small bilateral pleural effusions, [id number]. Laboratory Tests Test 06/06/25 16:38 06/06/25 17:12 06/06/25 19:26 06/07/25 06:13 Urine Specimen Description Cln catch midstream Urine Color Yellow Urine Clarity Clear Urine pH 6.0 Urine Specific [place] >=1.030 Urine Protein Negative mg/dl Urine Glucose (UA) Negative mg/dl Urine Ketones 15 mg/dl Urine Occult Blood Negative Urine Nitrite Negative Urine Bilirubin Negative Urine Urobilinogen 0.2 E.U/dL Urine Leukocyte Esterase Negative Urine Culture Indicated Not ind Volume Urine Centrifuged 10 ml Urine Comment Hemoglobin A1c 5.5 % Troponin I High Sensitivity 23 ng/L 29 ng/L Troponin I High Sens Percent Delta 16 % Troponin I Hi Sens Absolute Change 4 ng/L White Blood Count 7.9 X10'3 Red Blood Count 3.68 X10'6 Hemoglobin 12.7 g/dl Hematocrit 36.7 % Mean Corpuscular Volume 99.8 FL Mean Corpuscular Hemoglobin 34.5 PG Mean Corpuscular Hemoglobin Concent 34.5 g/dL Red Cell Distribution Width 13.5 % Platelet Count 220 X10'3 Mean Platelet Volume 9.6 FL Neutrophils (%) (Auto) 75.3 % Lymphocytes (%) (Auto) 13.5 % Monocytes (%) (Auto) 8.8 % Eosinophils (%) (Auto) 1.8 % Basophils (%) (Auto) 0.6 % Neutrophils # (Auto) 5.9 X10'3 Lymphocytes # (Auto) 1.1 X10'3 Monocytes # (Auto) 0.7 X10'3 Eosinophils # (Auto) 0.1 X10'3 Basophils # (Auto) 0.0 X10'3 CBC Comment Sodium Level 137 MMOL/L Potassium Level 4.3 MMOL/L Chloride Level 105 MMOL/L Carbon Dioxide Level 25.0 MMOL/L Anion Gap 7 Blood Urea Nitrogen 11 MG/DL Creatinine 1.03 MG/DL Estimated GFR/1.73 m2 71 ML/MIN BUN/Creatinine Ratio 10.7 Glucose Level 103 MG/DL Calcium Level 8.7 MG/DL Magnesium Level 1.8 MG/DL Total Bilirubin 0.5 MG/DL Aspartate Amino Transf (AST/SGOT) 15 U/L Alanine Aminotransferase (ALT/SGPT) 21 U/L Alkaline Phosphatase 57 IU/L Total Protein 6.9 G/DL Albumin 3.4 G/DL Globulin 3.5 G/DL Albumin/Globulin Ratio 1.0 Triglycerides Level 68 MG/DL Cholesterol Level 132 MG/DL LDL Cholesterol 25 MG/DL HDL Cholesterol 87 MG/DL Cholesterol/HDL Ratio 1.5 Chemistry Comments Test 06/08/25 06:45 White Blood Count 8.6 X10'3 Red Blood Count 4.13 X10'6 Hemoglobin 13.9 g/dl Hematocrit 41.3 % Mean Corpuscular Volume 100.2 FL Mean Corpuscular Hemoglobin 33.7 PG Mean Corpuscular Hemoglobin Concent 33.6 g/dL Red Cell Distribution Width 13.4 % Platelet Count 228 X10'3 Mean Platelet Volume 9.9 FL Neutrophils (%) (Auto) 58.4 % Lymphocytes (%) (Auto) 24.0 % Monocytes (%) (Auto) 14.0 % Eosinophils (%) (Auto) 3.1 % Basophils (%) (Auto) 0.5 % Neutrophils # (Auto) 5.0 X10'3 Lymphocytes # (Auto) 2.1 X10'3 Monocytes # (Auto) 1.2 X10'3 Eosinophils # (Auto) 0.3 X10'3 Basophils # (Auto) 0.0 X10'3 CBC Comment Sodium Level 137 MMOL/L Potassium Level 4.0 MMOL/L Chloride Level 102 MMOL/L Carbon Dioxide Level 27.4 MMOL/L Anion Gap 8 Blood Urea Nitrogen 14 MG/DL Creatinine 0.90 MG/DL Estimated GFR/1.73 m2 83 ML/MIN BUN/Creatinine Ratio 15.6 Glucose Level 95 MG/DL Calcium Level 9.1 MG/DL Magnesium Level 2.0 MG/DL Total Bilirubin 0.6 MG/DL Aspartate Amino Transf (AST/SGOT) 21 U/L Alanine Aminotransferase (ALT/SGPT) 18 U/L Alkaline Phosphatase 53 IU/L Total Protein 7.2 G/DL Albumin 3.4 G/DL Globulin 3.8 G/DL Albumin/Globulin Ratio 0.9 Chemistry Comments Advise on discharge - CAUTION NOT TO DO anything strenuous and to return immediately to the ED if there is any increase in shortness of breath or orthopnea. - Dr. Paige we will be calling you with the timing of surgery and his preoperative visit, you will likely be scheduled in mid of June - continue medications as described - any chest pain, severe shortness of breaths or worsening symptoms please come back to the ED or call 911 *Problems/Diagnosis: (1) Aortic stenosis Status: Acute Total Time Spent on D/C: Up to 30 Minutes Date of Service: Jun 08, 2025 Billing Provider: LIZ RIVAS MD Problem Qualifiers (1) Aortic stenosis: Cardiac valve disease etiology: etiology unspecified Qualified Codes: I35.0 - Nonrheumatic aortic (valve) stenosis SHEBA HARDEN, RES Jun 08, 2025 15:34
== END 2025-06-08 15:16 | disposition home or self-care (01) | DRG 314 ==
LOC: ER 12:02 → ED HOLD 16:46 → PCU 3S 18:25
PROVIDERS: ADMIT Family Medicine; ATTEND Family Medicine
PROC: BW241ZZ Computerized Tomography (CT Scan) of Chest and Abdomen using Low Osmolar Contrast (ICD-10-PCS; principal; 2025-06-07)
DX: T82.857A Stenosis of other cardiac prosthetic devices, implants and grafts, initial encounter (principal); I50.31 Acute diastolic (congestive) heart failure; I35.0 Nonrheumatic aortic (valve) stenosis; I11.0 Hypertensive heart disease with heart failure; E78.5 Hyperlipidemia, unspecified; N40.0 Benign prostatic hyperplasia without lower urinary tract symptoms; J45.909 Unspecified asthma, uncomplicated; D75.89 Other specified diseases of blood and blood-forming organs; Z95.2 Presence of prosthetic heart valve; Z79.899 Other long term (current) drug therapy; Y83.1 Surgical operation with implant of artificial internal device as the cause of abnormal reaction of the patient, or of later complication, without mention of misadventure at the time of the procedure; Y92.89 Other specified places as the place of occurrence of the external cause
CPT/HCPCS: 36415; 71045; 71260; 80048; 80053; 80061; 81003; 83036; 83735; 83880; 84484; 85025; 85610; 85730; 87081; 93005; 93308; 94760; 99285; G0378; J1650; J1938; J3411; J3490; Q9967